=== PATIENT | female | born 1935 | race Caucasian/White ===

== ENCOUNTER 2017-01-30 17:54 | Emergency (ER) | payer OTHER ==
[2017-01-30 17:58] VITALS: TEMP 97.9
--- NOTE | 2017-01-30 18:13 | EDPHY ---
HPI/HX/ROS/PE/MDM Narrative: CHIEF COMPLAINT: "I've got that cough that just won't stop" HPI: The patient is an 81 y/o female with a history of asthma complaining of a persistent cough for the last 5 days and worsening dyspnea over the last day. She developed symptoms on and saw her doctor on Sunday. She received prednisone and a nebulizer at that visit, but no antibiotics. She has home O2 available to use PRN and needed to use it all night last night due to shortness of breath. She says she gets pneumonia easily. She denies chest pain, fever, hemoptysis, vomiting, abdominal pain, dysuria, or diarrhea. REVIEW OF SYSTEMS: Aside from elements discussed in the HPI, a comprehensive 10-point review of systems was reviewed and is negative. PMH: Asthma SOCIAL HISTORY: Nonsmoker. PCP: Dr. Malhotra Prior medical records reviewed including ED visit 09/05/13 for dyspnea. PHYSICAL EXAM: General:Patient is alert, in no acute distress. ENT:Eyes are normal to inspection. ENT inspection normal. Neck: Normal inspection. Full range of motion. Respiratory:No respiratory distress. Breath sounds: overall decreased air movement, diminished in the right base, no wheezes. Dyspneic while talking. Cardiovascular: Regular rate and rhythm. Strong peripheral pulses. Normal cap refill. Abdomen:The abdomen is nontender to palpation. There are no peritoneal signs. Back: Normal to inspection. No tenderness to palpation. Skin: Normal color. No rash. Warm and dry. Extremities: Normal appearance. Full range of motion. Neuro: Oriented x3. Normal motor function. Normal sensory function. ED Course: This is an 81 y/o female with a history of asthma presenting with a 5-day history of cough and worsening dyspnea over the last day. She has diminished breath sounds in the right base and decreased airflow throughout on auscultation. She is afebrile. Plan for IV, labs, chest x-ray. Chest x-ray shows bronchitis. Duo neb administered. Reassessed patient and discuss work up. She is feeling improved after the nebulizer treatment. She will be discharged home with azithromycin and referral to PCP for follow up. Return precautions discussed. She is comfortable with this plan. MDM: This patient presents with continued dyspnea. Workup was expanded but there is no evidence of CHF, PNA, PE, or hypoxia. I will start azithromycin as a precaution. Patient is still on initial steroid burst and has nebulizers at home. - Data Points Imaging Results: Imaging Impressions Chest X-Ray 01/30/17 18:07 Impression: 1. Minimal peribronchial wall thickening, which could represent bronchitis, acute or chronic. 2. Evidence of granulomatous disease with a calcified granuloma in the left lower lobe and mild scarring in the left lower lobe. Imaging: I viewed and interpreted images myself Laboratory Results: Laboratory Results 01/30/17 18:15 01/30/17 18:15 01/30/17 01/30/17 01/30/17 18:15 18:15 18:15 WBC 11.58 10^3/uL H 10^3/uL (3.80-9.50) RBC 5.25 10^6/uL 10^6/uL (4.18-5.33) Hgb 16.2 g/dL g/dL (12.6-16.3) Hct 48.2 % H % (38.0-47.0) MCV 91.8 fL fL (81.5-99.8) MCH 30.9 pg pg (27.9-34.1) MCHC 33.6 g/dL g/dL (32.4-36.7) RDW 13.2 % % (11.5-15.2) Plt Count 251 10^3/uL 10^3/uL (150-400) MPV 8.9 fL fL (8.7-11.7) Neut % (Auto) 83.2 % H % (39.3-74.2) Lymph % (Auto) 10.2 % L % (15.0-45.0) [place] % (Auto) 5.6 % % (4.5-13.0) Eos % (Auto) 0.3 % L % (0.6-7.6) Baso % (Auto) 0.3 % % (0.3-1.7) Nucleat RBC Rel Count 0.0 % % (0.0-0.2) Absolute Neuts (auto) 9.64 10^3/uL H 10^3/uL (1.70-6.50) Absolute Lymphs (auto) 1.18 10^3/uL 10^3/uL (1.00-3.00) Absolute Monos (auto) 0.65 10^3/uL 10^3/uL (0.30-0.80) Absolute Eos (auto) 0.03 10^3/uL 10^3/uL (0.03-0.40) Absolute Basos (auto) 0.03 10^3/uL 10^3/uL (0.02-0.10) Absolute Nucleated RBC 0.00 10^3/uL 10^3/uL (0-0.01) Immature Gran % 0.4 % % (0.0-1.1) Immature Gran # 0.05 10^3/uL 10^3/uL (0.00-0.10) D-Dimer < 0.27 ug/mLFEU ug/mLFEU (0.00-0.50) Sodium 139 mEq/L mEq/L (134-144) Potassium 4.4 mEq/L mEq/L (3.5-5.2) Chloride 104 mEq/L mEq/L (97-110) Carbon Dioxide 25 mEq/l mEq/l (22-31) Anion Gap 10 mEq/L mEq/L (8-16) BUN 19 mg/dL mg/dL (7-23) Creatinine 0.9 mg/dL mg/dL (0.6-1.0) Estimated GFR 60 Glucose 111 mg/dL H mg/dL (70-100) Calcium 9.4 mg/dL mg/dL (8.5-10.4) Troponin I < 0.012 ng/mL ng/mL (0.000-0.034) NT-Pro-B Natriuret Pep 270 pg/mL pg/mL (0-450) Medications Given: Discontinued Medications Albuterol/Ipratropium (Duoneb) 3 ml EDNOW ONE Stop: 01/30/17 19:14 Last Admin: 01/30/17 19:27 Dose: 3 ml General Time Seen by Provider: 01/30/17 18:03 Initial Vital Signs: Initial Vital Signs Temperature (C) 36.6 C 01/30/17 17:56 Heart Rate 95 01/30/17 17:56 Respiratory Rate 20 01/30/17 17:56 Blood Pressure 192/93 H 01/30/17 17:56 O2 Sat (%) 91 L 01/30/17 17:56 O2 Delivery Mode Room Air Allergies/Adverse Reactions: PERSERVATIVE Allergy (Uncoded 01/30/17 17:59) Home Medications: Medication Instructions Recorded Advair 250/50 11/29/09 predniSONE 20 mg PO BID #10 tab 09/05/13 AZITHROMYCIN [Z-PACK] 250 mg PO DAILY 5 Days packet 01/30/17 Departure - Departure Disposition: Home, Routine, Self-Care Clinical Impression: Acute bronchitis, Exacerbation of asthma Condition: Good Instructions: Asthma (ED), Acute Bronchitis (ED) Additional Instructions: 1. Take azithromycin as prescribed. Be sure to complete the entire prescription. 2. Follow up with your primary care provider in 2-3 days for unimproved symptoms. 3. Return to the ED for any worsening of condition. Referrals: ELAINE MALHOTRA [Other] - As per Instructions Prescriptions: AZITHROMYCIN [Z-PACK] 250 mg PO DAILY 5 Days packet Report Scribed for: David Drew Report Scribed by: Anat Steve Date of Report: 01/30/17 Time of Report: 18:04 Physician Review and Approval Statement: Portions of this note were transcribed by an ED scribe. I personally performed the history, physical exam, and medical decision making; and confirm the accuracy of the information in the transcribed note.
[2017-01-30 18:31] LABS: PLATELET COUNT 251 10^3/uL (150-400)
[2017-01-30] MEDS ORDERED: IPRATROPIUM/ALBUTEROL 3 ML DEYVIAL IH ONE (19:13)
[2017-01-30 19:34] VITALS: O2SAT 90
[2017-01-30 20:00] VITALS: BP 170/101; PULSE 80; RESP 16
== END 2017-01-30 20:00 | disposition home or self-care (01) ==
DX: J45.901 Unspecified asthma with (acute) exacerbation (principal); J20.9 Acute bronchitis, unspecified